=== PATIENT | female | born 1970 | race Caucasian/White ===

== ENCOUNTER → 2019-06-06 | Outpatient (CLI) | payer MEDICARE, OTHER ==
[2019-06-06 17:30] LABS: Bilirubin, Urine Neg (Neg); Blood, Urine Neg (Neg); Glucose Qualitative, Urine Neg (Neg); Ketones, Urine Neg (Neg); Leukocyte Esterase, Urine 1+ (Neg); Nitrite, Urine Neg (Neg); Protein, Urine Neg (Neg); Specific Gravity, Urine 1.005 (1.003-1.022); Urobilinogen, Urine NORM (Normal); pH, Urine 6.5 (5.0-8.0)
[2019-06-06 19:03] LABS: Appearance, Urine Clear (Clear); Color, Urine Yellow (P-Yellow)
[2019-06-06 19:04] LABS: Bacteria Few /hpf; Red Blood Cells, Urine Not Seen /hpf (0-2); Squamous Epithelial Cells Rare /hpf (Few); White Blood Cells, Urine 0-2 /hpf (0-5)
== END | disposition home or self-care (01) ==
LOC: LAB 15:00 → LAB SHORT 15:00 → LAB FUT 06-06 16:50
PROVIDERS: Nurse Practitioner Family
DX: N39.0 Urinary tract infection, site not specified (principal)
CPT/HCPCS: 81001; 87077; 87086; 87186

== ENCOUNTER → 2025-01-08 | Outpatient (CLI) | payer MEDICARE, OTHER ==
[~2025-01-08] MED LIST: ATOR20 PO; Ativan1 MG PO; COMBIVENT RESPIM4 G1 INH; ESTRADIOL1 MG PO; FAMO20; LATUDA80 MG PO; LEVO-T112 MCG PO; MINIPRESS5 MG PO; OMEP20ER PO; TOPI100 PO; TRAM50 PO; ZOLP10 PO; ZYRTEC10 M2 PO
== END ==
LOC: LAB SHORT 19:05 → LAB 19:05
DX: R35.0 Frequency of micturition (principal)
CPT/HCPCS: 87077; 87086; 87186

== ENCOUNTER → 2025-07-09 | Outpatient (CLI) | payer MEDICARE, OTHER | LOC: LAB SHORT 18:30 → LAB 18:30 | DX: R35.0 Frequency of micturition (principal) | CPT/HCPCS: 87077; 87086; 87186 ==